=== PATIENT | male | born 2000 | race African-American/Black ===

== ENCOUNTER 2023-05-09 23:11 | Emergency (ER) | payer OTHER ==
[~2023-05-09] VITALS: Ht 167.6 cm; Wt 69.0 kg
[2023-05-09 23:16] VITALS: BP 106/74
[2023-05-09 23:30] VITALS: BP 116/70
[2023-05-09 23:45] VITALS: BP 106/72
[2023-05-10] VITALS (12 sets, daily range): BP systolic 106–114; BP diastolic 67–76
== END 2023-05-10 02:56 | disposition home or self-care (01) | DRG 552 ==
LOC: ED 23:11
DX: S13.4XXA Sprain of ligaments of cervical spine, initial encounter (principal); S40.011A Contusion of right shoulder, initial encounter; V89.2XXA Person injured in unspecified motor-vehicle accident, traffic, initial encounter